=== PATIENT | male | born 1990 | race African-American/Black ===

== ENCOUNTER 2020-05-05 17:24 | Emergency (ER) | payer SELFPAY ==
--- NOTE | 2020-05-05 18:20 | ER Document Report ---
ED Medical Screen (RME) - General Chief Complaint: ETOH Abuse Stated Complaint: ETOH ABUSE Time Seen by Provider: 05/05/20 18:09 - HPI Notes: 05/05/20 18:18 30-year-old male with a history of alcoholism and pancreatitis presents to the emergency room with a blood alcohol level of 0.5 by [facility] and they will not allow him to be sent back over until his blood alcohol is 0.25. Patient states that he drank 6 shots of vodka today. Has been in and out of surrounding hospitals for acute exacerbations of his pancreatitis. Patient has been drinking alcohol for over 20 years. Patient has the beginnings of cirrhosis with nodules and lesions on his liver. Denies any chest pain, shortness of breath, nausea vomiting diarrhea. Patient's fianc is at his side who is his advocate currently because he is under the influence. I have greeted and performed a rapid initial assessment of this patient. A comprehensive ED assessment and evaluation of the patient, analysis of test results and completion of the medical decision making process will be conducted by additional ED providers. PHYSICAL EXAMINATION: GENERAL: Well-appearing, well-nourished and in no acute distress. CV: s1, s2 regular LUNGS: No respiratory distress Musculoskeletal: Normal range of motion NEUROLOGICAL: Normal speech, normal gait. aggressive SKIN: Warm, Dry, normal turgor, no rashes or lesions noted. Past Medical History - Social History Chew tobacco use (# tins/day): No Frequency of alcohol use: Heavy Drug Abuse: Marijuana Physical Exam - Vital signs Vitals: Temp Pulse Resp BP Pulse Ox 98.8 F 145 H 16 135/86 H 96 05/05/20 17:41 05/05/20 17:41 05/05/20 17:41 05/05/20 17:41 05/05/20 17:41 Course - Vital Signs Vital signs: Temp Pulse Resp BP Pulse Ox 98.8 F 145 H 16 135/86 H 96 05/05/20 17:41 05/05/20 17:41 05/05/20 17:41 05/05/20 17:41 05/05/20 17:41
--- NOTE | 2020-05-05 18:36 | EKG REPORT ---
SEVERITY:- BORDERLINE ECG - SINUS TACHYCARDIA BORDERLINE T WAVE ABNORMALITIES : Confirmed by: Henry Schwarz MD 05-May-2020 18:35:46
[2020-05-05 18:40] LABS: APPEARANCE,URINE CLOUDY; BILIRUBIN,URINE NEGATIVE (NEGATIVE); GLUCOSE, URINE NEGATIVE (NEGATIVE); KETONES,URINE TRACE mg/dL (NEGATIVE); LEUKOCYTE ESTERASE,URINE TRACE (NEGATIVE); NITRITE,URINE NEGATIVE (NEGATIVE); PROTEIN,URINE 100 mg/dL (NEGATIVE); URINE SPECIFIC GRAVITY 1.025
[2020-05-05 18:41] LABS: COLOR,URINE DARK YELLOW
[2020-05-05 18:44] LABS: ABSOLUTE EOSINOPHILS # (AUTO) 0.2 10^3/uL (0.0-0.6); ABSOLUTE LYMPHOCYTES (AUTO) 3.6 10^3/uL (0.5-4.7); ABSOLUTE MONOCYTES (AUTO) 0.5 10^3/uL (0.1-1.4); ABSOLUTE NEUT (AUTO) 5.8 10^3/uL (1.7-8.2); BASOPHILS % (AUTO) 0.3 % (0-2); EOSINOPHILS % (AUTO) 1.9 % (0-6); HEMOGLOBIN 16.2 g/dL (13.5-17.0); LYMPHOCYTES % (AUTO) 35.5 % (13-45); MEAN CORPUSCULAR HEMOGLOBIN 31.6 pg (27.0-33.4); MEAN CORPUSCULAR HGB CONC 34.5 g/dL (32.0-36.0); MEAN CORPUSCULAR VOLUME 92 fl (80-97); MONOCYTES % (AUTO) 5.3 % (3-13); PLATELET COUNT 358 10^3/uL (150-450); RED BLOOD COUNT 5.12 10^6/uL (4.35-5.55); TOTAL CELLS COUNTED % (AUTO) 100 %; WHITE BLOOD COUNT 10.2 10^3/uL (4.0-10.5)
[2020-05-05 18:52] LABS: URINE AMPHETAMINES SCREEN NEGATIVE; URINE BARBITURATES SCREEN NEGATIVE; URINE BENZODIAZEPINES SCREEN NEGATIVE; URINE COCAINE SCREEN NEGATIVE; URINE METHADONE SCREEN NEGATIVE; URINE PHENCYCLIDINE SCREEN NEGATIVE
[2020-05-05 18:54] LABS: URINE MARIJUANA (THC) SCREEN UNCONFIRMED POSITIVE
[2020-05-05 19:06] LABS: ALBUMIN 4.9 g/dL (3.5-5.0); ALKALINE PHOSPHATASE 74 U/L (38-126); ANION GAP 18 (5-19); ASPARTATE AMINO TRANSFERASE 53 U/L (17-59); BILIRUBIN,DIRECT 0.3 mg/dL (0.0-0.4); BILIRUBIN,TOTAL 0.3 mg/dL (0.2-1.3); BLOOD UREA NITROGEN 7 mg/dL (7-20); CALCIUM 9.4 mg/dL (8.4-10.2); CARBON DIOXIDE 22 mmol/L (22-30); CHLORIDE 110 mmol/L (98-107); GLUCOSE 128 mg/dL (75-110); POTASSIUM 3.7 mmol/L (3.6-5.0); TOTAL PROTEIN 8.2 g/dL (6.3-8.2)
[2020-05-05 19:13] LABS: ACETAMINOPHEN < 10 ug/mL (10-30); SALICYLATE < 1.0 mg/dL (2.0-20.0)
[2020-05-05 19:17] LABS: ALCOHOL 390 mg/dL (NONE DETECTED)
[2020-05-05] MEDS ORDERED: NICOTINE 21 MG/24 HR PATCH.TD24 TD ONE (19:30)
[2020-05-05] MEDS ORDERED: NORMAL SALINE 1000 ML 1,000 ML IV ONE (19:31)
[2020-05-05] MEDS ORDERED: NORMAL SALINE 1000 ML 1,000 ML IV PRN (20:40)
[2020-05-05] MEDS ORDERED: DICYCLOMINE HCL 20 MG TABLET PO ONE (20:41)
--- NOTE | 2020-05-05 20:42 | ER Document Report ---
ED General - General Chief Complaint: ETOH Abuse Stated Complaint: ETOH ABUSE Time Seen by Provider: 05/05/20 18:09 Notes: 30-year-old male with past medical history of alcohol abuse and pancreatitis presenting today for medical evaluation as he is trying to get to [facility] for alcohol detox. Patients yulissa is also at bedside with him. She informs provider that patient recently was diagnosed and had an inpatient stay for pancreatitis at [facility] approximately 2 weeks ago. That was approximately his third admission of this year. He continues to have left upper quadrant pain. He says that there is also a cyst located on his pancreas. He drinks 1 pint and 3-4 forty's a day. This has been occurring for as long as he can remember. He takes a blood pressure medication that he started 2 days ago, uncertain of the medication. He takes Bentyl for his pancreatitis that helps to improve his symptoms and keeps it at a tolerable level. He denies any fever, chills, nausea vomiting or additional symptoms at this time. - Related Data Allergies/Adverse Reactions: ibuprofen Allergy (Verified 05/05/20 19:33) Past Medical History - Social History Smoking Status: Current Every Day Smoker Chew tobacco use (# tins/day): No Frequency of alcohol use: Heavy Drug Abuse: Marijuana Family History: Reviewed & Not Pertinent Review of Systems - Review of Systems Constitutional: No symptoms reported EENT: No symptoms reported Cardiovascular: No symptoms reported Respiratory: No symptoms reported Gastrointestinal: See HPI Genitourinary: No symptoms reported Male Genitourinary: No symptoms reported Musculoskeletal: No symptoms reported Skin: No symptoms reported Hematologic/Lymphatic: No symptoms reported Neurological/Psychological: No symptoms reported Physical Exam - Vital signs Vitals: Temp Pulse Resp BP Pulse Ox 98.8 F 145 H 16 135/86 H 96 05/05/20 17:41 05/05/20 17:41 05/05/20 17:41 05/05/20 17:41 05/05/20 17:41 Interpretation: Normal - Notes Notes: Adult General: GENERAL: Alert, interacts well. No acute distress HEAD: Normocephalic, atraumatic EYES: Prosthetic right eye. Left pupil equal, round and reactive to light. left extraocular movement intact. ENT: Airway patent. Nares patent. NECK: Full range of motion. Supple. Trachea midline. No lymphadenopathy. LUNGS: Clear to auscultation bilaterally, no wheezes, rales, or rhonchi. No respiratory distress. Nontender chest wall. HEART: Regular rate and rhythm. No murmurs, rubs or gallops. ABDOMEN: Soft, tender LUQ. Nondistended. (-) Brothers sign. Bowel sounds present in all 4 quadrants. No rebound, guarding or masses. GENITOURINARY: Deferred EXTREMITIES: Moves all 4 extremities spontaneously. No edema, normal radial and dorsal pedis pulses bilaterally. No cyanosis. BACK: Moves all extremities with full range of motion. NEUROLOGICAL: Alert and oriented x3. Normal speech. Strength 5/ 5 in all extremities. PSYCH: Normal affect, normal mood. SKIN: Warm, dry, normal turgor. No rashes or lesions noted. Course - Re-evaluation Re-evalutation: 05/05/20 20:49 lipase is 662.2, sodium 150.4, serum alcohol is 390, urines show trace leukocyteserase. EKG shows Sinus tachycardia of 139. no st segment elevations. 05/05/20 23:34 Reports an allergy to morphine and dilaudid. Had at his last hospital visit and had uncontrollable itching. 05/05/20 23:[address] no relief[address] scan shows that his pancrease is diffusely enlarged with fluid and a small fluid collection measuring 12 mm. 05/06/20 01:08 Ordered fentyl as patient has a reaction to morphine and diludad (uncontrollable itching). He also informs me that he has a hx of seizures when he withdrawals from alcohol and he has taken ativan in the past to prevent seizures. Discussed the patient with Dr. Orr. He recommends 5 mg of oxy while in the emergency room and discharge home and for patient to quit drinking due to pancreatitis. I called [facility] about accepting a patient with pancreatitis. They state that it depends and they recommend faxing the labs and the plan over to their provider to help determine if they will accept the patient. Nurse notifies provider of vitals. Also notified provider that patient wants to leave. I went to discuss staying for additional pain relief and transfer to [facility]. Patient reports 8/10 pain but does not desire to stay for additional pain medications, treatment or to be sent to [facility] for detox. I discussed the risks with the patient to include worsening symptoms, uncontrolled pain and possibly , who continues to inform provider he needs to take his fiance to class and it is an hour away. Does tell provider he will come back for detox with [facility] at a later date. I discussed that continued alcohol use will only exacerbate his pancreatitis and highly encourage he seeks treatment. I have notified the patient that he is leaving against my medical advice for better pain control and transfer to [facility] for detox. The patient has chosen to leave the facility against medical advice. The relevant issues have been reviewed and discussed with the patient and family at the bedside. At the time of this assessment there is no indication for involuntary commitment. The patient is alert, oriented, and able to express clearly their reasoning for not wanting to remain in the emergency department for further treatment. The patient is not clinically psychotic, denies any suicidal ideation. Differential or suspected diagnoses based on medical screening exam: pancreatitis. The patient is aware of the concerning diagnoses and acknowledges understanding of the reasons for the following recommendations: continued treatment The following recommendations/services were offered and refused: additional treatment and referral The following risks were explained: , permanent disability, loss of function Clinical impression: Patient is competent to make decisions regarding the medi olimpia that is being offered. - Vital Signs Vital signs: Temp Pulse Resp BP Pulse Ox 97.8 F 64 16 111/94 H 100 05/06/20 05:41 05/06/20 05:41 05/06/20 05:41 05/06/20 05:41 05/06/20 05:41 - Laboratory Result Diagrams: 05/05/20 18:20 05/06/20 02:20 Laboratory results interpreted by me: 05/05/20 05/05/20 05/05/20 18:20 18:20 18:20 RDW 19.0 H Sodium 150.4 H Chloride 110 H Glucose 128 H Lipase 662.2 H Urine Protein 100 H Urine Ketones TRACE H Urine Urobilinogen 4.0 H Ur Leukocyte Esterase TRACE H Salicylates < 1.0 L Acetaminophen < 10 L Serum Alcohol 390 H* 05/06/20 02:20 RDW Sodium Chloride 109 H Glucose Lipase 539.1 H Urine Protein Urine Ketones Urine Urobilinogen Ur Leukocyte Esterase Salicylates Acetaminophen Serum Alcohol - EKG Interpretation by Me Additional EKG results interpreted by me: 05/05/20 20:50 EKG shows Sinus tachycardia of 139. no st segment elevations. Discharge - Discharge Clinical Impression: Alcohol abuse Pancreatitis Qualifiers: Chronicity: chronic Pancreatitis type: alcohol induced Qualified Code(s): K86.0 - Alcohol-induced chronic pancreatitis Disposition: AGAINST MEDICAL ADVICE Additional Instructions: Please be advised that you are leaving AGAINST MEDICAL ADVICE to have your pain better controlled as well as to establish your care and transfer over to [facility]. I have prescribed you pain medications at work previously to help alleviate your pain. I recommend that you follow-up with your primary care provider as soon as possible. You may also return to the emergency department for worsening symptoms or the development of new symptoms. I also recommend that you abstain from alcohol use and seek treatment for detox. If you continue to use alcohol this will only worsen your pancreatitis. Prescriptions: Oxycodone HCl [Oxycontin Ir 5 Mg Tablet] 1 tab PO Q6H PRN 4 Days #15 tablet PRN Reason: For Pain
--- NOTE | 2020-05-05 23:02 | RADIOLOGY REPORT (SQ) ---
EXAM DESCRIPTION: Contrast-enhanced CT scan of the abdomen and pelvis. CLINICAL HISTORY: 30 years Male; abdominal pain left upper quadrant pain. TECHNIQUE: CT of the abdomen and pelvis with intravenous contrast.. Oral contrastWas not used. Delayed imaging of the abdomen and pelvis was performed. All CT scans at this facility use dose modulation, iterative reconstruction, and/or weight based dosing when appropriate to reduce radiation dose to as low as reasonably achievable. This exam was performed according to our department optimization program which includes automated exposure control, adjustment of the mA and/or kv according to patient size and/or use of iterative reconstruction technique. COMPARISON: None. FINDINGS: Motion artifact is present throughout the exam. Lower chest:The lung bases are clear. The visualized portion of heart and great vessels are normal. Abdomen: Liver and biliary tree: Diffuse fatty infiltration of the liver. The liver is borderline enlarged. Gallbladder is unremarkable. Portal vein is patent. Hepatic veins are not yet opacified. Pancreas: Pancreas appears diffusely enlarged and there may be very subtle peripancreatic fluid. This raises the possibility of diffuse pancreatitis. In addition adjacent to the tail of the pancreas is a small fluid collection measuring 12 mm. This is not well seen because of motion artifact. Spleen:Within normal limits Kidneys: Kidneys are normal in size, shape and position. No stones. No mass or hydronephrosis. Symmetric renal enhancement. Adrenal glands:Within normal limits Vascular structures:Within normal limits Retroperitoneum: No mass or lymphadenopathy Abdominal wall: Small umbilical hernia containing omentum. GI: The stomach may be thick-walled but it is not completely distended and this makes it difficult to evaluate. Bowel gas pattern is nonspecific with fluid and mildly distended bowel loops. No definitive obstruction. The appendix is not clearly seen. General: No free air. No free fluid Pelvis: Lymph nodes: No mass or lymphadenopathy Bladder: Unremarkable. Pelvis: No pelvic mass or adenopathy. Bones: No acute bone findings. IMPRESSION: 1. Mild hepatomegaly with diffuse fatty infiltration of the liver. 2. Diffuse enlargement the pancreas with subtle peripancreatic edema suggesting acute pancreatitis. Small fluid collection is seen adjacent to the tail of the pancreas. 3. Nonspecific bowel gas pattern.
[2020-05-05] MEDS ORDERED: FENTANYL CITRATE INJ/PF 100 MCG/2 ML AMPUL IV ONE (23:35)
[2020-05-06] MEDS ORDERED: NORMAL SALINE 1000 ML 1,000 ML IV ONE (00:29)
[2020-05-06] MEDS ORDERED: 1/2 NORMAL SALINE 1,000 ML IV ONE (00:31)
[2020-05-06] MEDS ORDERED: LORAZEPAM INJ 2 MG/1 ML VIAL IV ONE (01:07)
[2020-05-06 03:06] LABS: ALCOHOL 185 mg/dL (NONE DETECTED); ANION GAP 12 (5-19); BLOOD UREA NITROGEN 7 mg/dL (7-20); CALCIUM 8.4 mg/dL (8.4-10.2); CARBON DIOXIDE 22 mmol/L (22-30); CHLORIDE 109 mmol/L (98-107); GLUCOSE 86 mg/dL (75-110)
[2020-05-06] MEDS ORDERED: FENTANYL CITRATE INJ/PF 100 MCG/2 ML AMPUL IV ONE (03:16)
[2020-05-06 05:43] VITALS: BP 111/94
== END 2020-05-06 06:20 | disposition left against medical advice (07) ==
LOC: ER 17:24
DX: K86.0 Alcohol-induced chronic pancreatitis (principal); F10.10 Alcohol abuse, uncomplicated; Y90.8 Blood alcohol level of 240 mg/100 ml or more; R10.12 Left upper quadrant pain; F17.200 Nicotine dependence, unspecified, uncomplicated; Z88.6 Allergy status to analgesic agent
CPT/HCPCS: 93005; 96376; 99285; 96361; 96374; 96375; 36415; 87086; 80307 ×4; 83690; 83735; 85025; 80048; 80053; 81001; 74177; 93010; J3490; J3010; J2060; J7030

== ENCOUNTER 2020-05-08 14:40 | Emergency (ER) | payer SELFPAY ==
--- NOTE | 2020-05-08 14:59 | ER Document Report ---
ED Medical Screen (RME) - General Chief Complaint: Abdominal Pain Stated Complaint: ABDOMINAL PAIN/MED CLEARANCE Time Seen by Provider: 05/08/20 14:57 Mode of Arrival: Ambulatory Information source: Patient Notes: 30-year-old male presented to ED for complaint of acute pancreatitis. He states he was index and checked himself out to come to the emergency room to get evaluated for pancreatitis. He states he is not allowed to give any IV antibiotics or pain medicine for pancreatitis while he is at [facility]. He states he does drink alcohol daily. He has been treated for pancreatitis in the past. He states he is also had an abdominal surgery for something as an and has had his right eye removed. He is alert oriented respirations regular nonlabored speaking in full sentences. He states he does smoke 7 cigarettes a day drinks daily and smokes pot. States he does not use any other illicit drugs. I have greeted and performed a rapid initial assessment of this patient. A co mprehensive ED assessment and evaluation of the patient, analysis of test results and completion of medical decision making process will be conducted by an additional ED providers. - Related Data Allergies/Adverse Reactions: ibuprofen Allergy (Verified 05/05/20 19:33) Past Medical History - Social History Frequency of alcohol use: Heavy Physical Exam - Vital signs Vitals: Temp Pulse Resp BP Pulse Ox 98.2 F 104 H 20 137/106 H 98 05/08/20 14:45 05/08/20 14:45 05/08/20 14:45 05/08/20 14:45 05/08/20 14:45 Course - Vital Signs Vital signs: Temp Pulse Resp BP Pulse Ox 98.2 F 104 H 20 137/106 H 98 05/08/20 14:45 05/08/20 14:45 05/08/20 14:45 05/08/20 14:45 05/08/20 14:45
[2020-05-08] MEDS ORDERED: ONDANSETRON HCL INJ/PF 4 MG/2 ML SDV IV ONE (15:10)
[2020-05-08] MEDS ORDERED: LORAZEPAM 1 MG TABLET PO ONE (15:11)
[2020-05-08 15:25] LABS: ABSOLUTE EOSINOPHILS # (AUTO) 0.1 10^3/uL (0.0-0.6); ABSOLUTE LYMPHOCYTES (AUTO) 1.1 10^3/uL (0.5-4.7); ABSOLUTE MONOCYTES (AUTO) 0.4 10^3/uL (0.1-1.4); ABSOLUTE NEUT (AUTO) 4.6 10^3/uL (1.7-8.2); BASOPHILS % (AUTO) 0.2 % (0-2); EOSINOPHILS % (AUTO) 2.1 % (0-6); LYMPHOCYTES % (AUTO) 17.5 % (13-45); MEAN CORPUSCULAR HEMOGLOBIN 31.5 pg (27.0-33.4); MEAN CORPUSCULAR HGB CONC 34.1 g/dL (32.0-36.0); MEAN CORPUSCULAR VOLUME 93 fl (80-97); MONOCYTES % (AUTO) 5.8 % (3-13); PLATELET COUNT 145 10^3/uL (150-450); RED BLOOD COUNT 4.22 10^6/uL (4.35-5.55); RED CELL DISTRIBUTION WIDTH 18.2 % (11.5-14.0); SEGMENTED NEUTROPHILS % (AUTO) 74.4 % (42-78); TOTAL CELLS COUNTED % (AUTO) 100 %; WHITE BLOOD COUNT 6.2 10^3/uL (4.0-10.5)
[2020-05-08 15:29] LABS: HEMOGLOBIN 13.3 g/dL (13.5-17.0)
[2020-05-08 15:44] LABS: ALBUMIN 4.2 g/dL (3.5-5.0); ALKALINE PHOSPHATASE 64 U/L (38-126); ANION GAP 9 (5-19); ASPARTATE AMINO TRANSFERASE 32 U/L (17-59); BILIRUBIN,DIRECT 0.3 mg/dL (0.0-0.4); BILIRUBIN,TOTAL 0.6 mg/dL (0.2-1.3); BLOOD UREA NITROGEN 6 mg/dL (7-20); CALCIUM 9.3 mg/dL (8.4-10.2); CARBON DIOXIDE 26 mmol/L (22-30); CHLORIDE 102 mmol/L (98-107); GLUCOSE 215 mg/dL (75-110); POTASSIUM 3.6 mmol/L (3.6-5.0)
[2020-05-08 16:06] LABS: APPEARANCE,URINE CLEAR; BILIRUBIN,URINE NEGATIVE (NEGATIVE); COLOR,URINE YELLOW; GLUCOSE, URINE 50 mg/dL (NEGATIVE); KETONES,URINE NEGATIVE (NEGATIVE); LEUKOCYTE ESTERASE,URINE NEGATIVE (NEGATIVE); NITRITE,URINE NEGATIVE (NEGATIVE); PROTEIN,URINE 30 mg/dL (NEGATIVE); URINE SPECIFIC GRAVITY 1.025; UROBILINOGEN,URINE NEGATIVE mg/dL (<2.0)
--- NOTE | 2020-05-08 20:47 | ER Document Report ---
ED General - General Chief Complaint: Abdominal Pain Stated Complaint: ABDOMINAL PAIN/MED CLEARANCE Time Seen by Provider: 05/08/20 14:57 Primary Care Provider: [facility] [Provider Group] - Follow up as needed Mode of Arrival: Ambulatory Information source: Patient Notes: Patient a 30-year-old male with a history of alcohol abuse, HTN, and pancreatitis who presents for abdominal pain that began last night and worsened this morning. Patient was checked into [facility] and to be evaluated but they said they couldn't do anything for him, which caused him to come to the ED. The patient describes his pain as periumbilical and is similar to his past pancreatitis episodes. He reports that movement exacerbates his symptoms while the position or squatting are the only ways he can be comfortable. He reports an episode of vomiting last night and one this morning. He reports headache, dizziness, nausea and diaphoresis but denies fever, diarrhea and uri nary symptoms. He has not has a BM in 4-5 days. Patient drinks alcohol daily but his last drink was three days ago. He reports drinking 6-9 beers with a "small bottle of liquor" daily. Patient has had alcohol withdrawal seizures in the past but does not feel like his is withdrawing now. He does want help and is trying to quit as he realizes that alcohol is harming various aspects of his life. He takes Bentyl daily as well as medication for his HTN. - Related Data Allergies/Adverse Reactions: ibuprofen Allergy (Verified 05/05/20 19:33) Past Medical History - General Information source: Patient - Social History Smoking Status: Current Every Day Smoker Chew tobacco use (# tins/day): No Frequency of alcohol use: Heavy Drug Abuse: Marijuana Family History: Reviewed & Not Pertinent Patient has homicidal ideation: No - Past Medical History Cardiac Medical History: Reports: Hx Hypertension Neurological Medical History: Reports: Hx Seizures Review of Systems - Review of Systems Notes: REVIEW OF SYSTEMS: CONSTITUTIONAL : Reports sweats. Denies fever, or chills. Denies recent illn ess. EENT: Denies eye, ear, throat, or mouth pain or symptoms. Denies nasal or sinus congestion. CARDIOVASCULAR: Denies chest pain. RESPIRATORY: Denies cough, cold, or chest congestion. Denies shortness of breath, difficulty breathing, or wheezing. GASTROINTESTINAL: Reports abdominal pain, nausea and vomiting. Denies diarrhea. Last BM: 4-5 days ago. GENITOURINARY: Denies difficulty urinating, painful urination, burning, frequency, or blood in urine. MUSCULOSKELETAL: Denies neck or back pain or joint pain or swelling. SKIN: Denies rash or skin lesions. NEUROLOGICAL: Reports headache and dizziness. Denies altered mental status or loss of consciousness. Denies weakness or paralysis or loss of use of either side. Denies problems with gait or speech. Denies sensory or motor loss. PSYCHIATRIC: Denies anxiety or stress or depression. ALL OTHER SYSTEMS REVIEWED AND NEGATIVE. Physical Exam - Vital signs Vitals: Temp Pulse Resp BP Pulse Ox 98.2 F 104 H 20 137/106 H 98 05/08/20 14:45 05/08/20 14:45 05/08/20 14:45 05/08/20 14:45 05/08/20 14:45 - Notes Notes: VITAL SIGNS: Within normal limits. GENERAL: No acute distress, non-toxic appearance. HEAD: Normal with no signs of head trauma. EYES: PERRLA, EOMI, conjunctiva normal, no discharge. EARS: Hearing grossly intact. NOSE: Normal. MOUTH: Moist mucous membranes. CHEST: Clear breath sounds bilaterally. No wheezes, rales, or rhonchi. CARDIAC: Regular rate and rhythm. S1 and S2, without murmurs, gallops, or rubs. VASCULAR: No Edema. Peripheral pulses normal and equal in all extremities. ABDOMEN: Abdomen soft and nondistended. Active BS in all four quadrants. Tenderness diffusely. No masses or pulsatile masses. GENITOURINARY: Normal, No tenderness LYMPATHTIC: No lymphadenopathy noted. MUSCULOSKELETAL: Good range of motion of all major joints. Extremities without clubbing, cyanosis or edema. NEUROLOGICAL: Alert and oriented x 3. No focal sensory or strength deficits. Speech normal. Follows commands appropriately. PSYCHIATRIC: Normal Affect, judgement and mood. SKIN: Normal appearance with no rashes or lesions. Course - Re-evaluation Re-evalutation: 05/08/20 21:54 Lipase mildly elevated at 379.8. CT scan consistent with pancreatitis. Morphine and IV fluids ordered. Will PO challenge once medicated to assess whether he is safe to discharge. Abdomen/Pelvis CT 05/08/20 14:59 IMPRESSION: 1. Pancreatic enlargement and peripancreatic stranding, consistent with pancreatitis. Pancreatic head and tail hypodensities are identified, stable from the prior examination and could be on the basis of pseudocysts, however neoplasm is not excluded. 2. Hepatic steatosis. TECHNICAL DOCUMENTATION: Quality ID # 436: Final reports with documentation of one or more dose reduction techniques (e.g., Automated exposure control, adjustment of the mA and/or kV according to patient size, use of iterative reconstruction technique) copyright 2011 [employer]- All Rights Reserved 05/08/20 23:19 Per nurse, patient tried a small amount of apple juice and applesauce and immediately threw it up. GI cocktail ordered. 05/09/20 00:45 Patient re-evaluated, he reports continued abdominal pain but tolerated the GI cocktail and denies any nausea or vomiting. [facility] was contacted and they will no accept patients who are currently taking narcotics. Discussed this with patient and he will be discharged home and return to [facility] once he is done with his pain medication. Discussed with patient the importance of alcohol cessation and patient is responsive. Phenergan prescribed and [place] dose-pack ordered. 05/09/20 01:37 Patient is ready to be discharged but his fiance has [address] to pick him up and he is asking for more pain medication. Morphine has been ordered. - Vital Signs Vital signs: Temp Pulse Resp BP Pulse Ox 97.9 F 73 16 140/89 H 100 05/09/20 01:00 05/09/20 01:00 05/09/20 01:00 05/09/20 01:00 05/09/20 01:00 - Laboratory Result Diagrams: 05/08/20 15:06 05/08/20 15:06 Laboratory results interpreted by me: 05/08/20 05/08/20 05/08/20 15:06 15:06 15:32 RBC 4.22 L Hgb 13.3 L D RDW 18.2 H Plt Count 145 L Sodium 136.8 L BUN 6 L Glucose 215 H Lipase 379.8 H Urine Protein 30 H Urine Glucose (UA) 50 H Urine Ascorbic Acid 40 H Discharge - Discharge Clinical Impression: Alcohol abuse Pancreatitis Qualifiers: Chronicity: acute Pancreatitis type: alcohol induced Acute pancreatitis complication: unspecified Qualified Code(s): K85.20 - Alcohol induced acute pancreatitis without necrosis or infection Disposition: HOME, SELF-CARE Additional Instructions: Pancreatitis Pancreatitis is an inflammation of the pancreas, an organ at the back of your abdomen. The pancreas produces insulin and enzymes that digest your food. Pancreatitis can be caused by gallstones in the bile duct, by alcohol or viruses, or by excess fat or calcium in the blood stream. Occasionally, pancreatitis occurs when a stomach ulcer rodriguez through into the pancreas. We try to find the cause of pancreatitis, but some tests can't be done until the pancreas heals. The usual symptoms of pancreatitis are pain in the pit of the stomach that goes straight through to the back, vomiting, and low-grade fever. Severe cases require hospital admission, but many patients with mild pancreatitis do well at home. You will probably need medicine for pain and for vomiting. Sometimes we prescribe medicine to decrease stomach acid secretion and to decrease flow of pancreatic juices. Start with a diet of clear liquids (soda pop, juices). When the pain is decreasing, you can add some simple starches (potato, toast, applesauce). Avoid proteins and fats until you are completely painfree. When you're better, your doctor may suggest treatment to prevent future pancreatitis (such as gallbladder removal). Avoid alcohol forever. Get immediate treatment for any future episodes. Contact your doctor at once or return here if you have increasing pain, shortness of breath, general swelling, increasing size of the abdomen, continued vomiting, muscle spasms, or other new symptoms. Drink clear liquids for the first 1-2 days then proceed to a bland diet. No alcohol. Takes prescriptions as prescribed. Follow up with [facility] in 1-2 weeks. Prescriptions: Promethazine HCl [Phenergan 25 mg Tablet] 25 mg PO Q6H PRN #15 tablet PRN Reason: Referrals: [facility] [Provider Group] - Follow up as needed
--- NOTE | 2020-05-08 21:18 | RADIOLOGY REPORT (SQ) ---
EXAM DESCRIPTION: CT ABDOMEN PELVIS WITH IV CONTRAST COMPLETED DATE/TME: 05/08/2020 14:59 CLINICAL HISTORY: 30 years, Male, Upper abdominal pain history of pancreatitis alcoh COMPARISON: May 05, 2020 CT TECHNIQUE: Postcontrast images of the abdomen and pelvis were obtained with 75 mL Omnipaque 350 intravenously. Images stored on PACS. All CT scanners at this facility use dose modulation, iterative reconstruction, and/or weight based dosing when appropriate to reduce radiation dose to as low as reasonably achievable (ALARA). [facility]: Dose Right [facility]: CareDose [facility]: Dose Right [facility]: Teradose 4D [facility]: TheraCoat LIMITATIONS: None. FINDINGS: Pancreas again is heterogeneously enlarged and there is mild peripancreatic fat stranding, consistent with pancreatitis. There is a 15 mm hypodensity within the pancreatic head as measured on image 33, stable in retrospect but not well visualized on the prior study due to motion artifact. There is also a stable, 12 mm hypodensity within the pancreatic tail on image 23. Splenic vein and portal vein are patent. There is diffuse fatty infiltration of the liver. Spleen, kidneys, adrenal glands are within normal limits. Gallbladder is grossly unremarkable. There is no abnormal bowel dilation. The appendix is within normal limits. Visualized lung bases are clear. There is no acute or suspicious bony abnormality. IMPRESSION: 1. Pancreatic enlargement and peripancreatic stranding, consistent with pancreatitis. Pancreatic head and tail hypodensities are identified, stable from the prior examination and could be on the basis of pseudocysts, however neoplasm is not excluded. 2. Hepatic steatosis. TECHNICAL DOCUMENTATION: Quality ID # [id number]: Final reports with documentation of one or more dose reduction techniques (e.g., Automated exposure control, adjustment of the mA and/or kV according to patient size, use of iterative reconstruction technique) copyright 2011 [employer] (formerly [employer] All Rights Reserved
[2020-05-08] MEDS ORDERED: MORPHINE SULFATE 10 MG/ML INJ IV ONE (21:48)
[2020-05-08] MEDS ORDERED: NORMAL SALINE 1000 ML 1,000 ML IV ONE (21:49)
[2020-05-08] MEDS ORDERED: METOCLOPRAMIDE HCL ORAL SOLN 10 MG/10 ML UDCUP PO ONE (23:18)
[2020-05-08] MEDS ORDERED: LIDOCAINE 2% VISCOUS SOLN 15 ML UDCUP PO ONE (23:18)
[2020-05-08] MEDS ORDERED: MAG HYDROX/AL HYDROX/SIMETH SUSP 30 ML UDCUP PO ONE (23:18)
[2020-05-09] MEDS ORDERED: HYDROCODONE/ACETAMINOPHEN 5-325 MG (6 TAB/ER DISP) PO PRN (00:56)
[2020-05-09] MEDS ORDERED: MORPHINE SULFATE 10 MG/ML INJ IV ONE (01:36)
[2020-05-09 03:11] VITALS: BP 142/90
== END 2020-05-09 03:05 | disposition home or self-care (01) ==
LOC: ER 14:40
DX: K85.20 Alcohol induced acute pancreatitis without necrosis or infection (principal); F10.10 Alcohol abuse, uncomplicated; K76.0 Fatty (change of) liver, not elsewhere classified; R10.33 Periumbilical pain; R10.817 Generalized abdominal tenderness; I10 Essential (primary) hypertension; R51 Headache; R42 Dizziness and giddiness; R11.2 Nausea with vomiting, unspecified; R61 Generalized hyperhidrosis; R19.4 Change in bowel habit; F17.200 Nicotine dependence, unspecified, uncomplicated; Z79.899 Other long term (current) drug therapy; Z88.8 Allergy status to other drugs, medicaments and biological substances
CPT/HCPCS: 96376; 99285; 96361; 96374; 96375; 36415; 80307; 83690; 85025; 80053; 81001; 74177; J3490; J2270 ×2; J2405; J7030